=== PATIENT | female | born 1955 | race Caucasian/White ===

== ENCOUNTER → 2021-07-19 10:41 | Outpatient (CLI) | payer OTHER, MEDICARE, SELFPAY ==
--- NOTE | ~2021-07-19 | XR_ITS ---
[id number] 07/19/2021 11:12 Indication: Neck pain Procedure: 4 views cervical spine Comparison: No prior studies for comparison. Findings: Lung apices are normal. There is degenerative disc disease at multiple levels including C3- 4 through C6-7. There is degenerative anterolisthesis at C3-4 and retrolisthesis at C5-6. There is mo derate multilevel uncinate and facet hypertrophy. No acute fractures identified. No prevertebral soft tissue swelling. Odontoid process within normal limits. Lung apices are normal. Impression: 1: Severe cervical spondylosis. Reviewed, dictated and finalized at location A. [facility] Impression: 1: Severe cervical spondylosis.
== END ==
PROVIDERS: Visit Provider Chiropractor
DX: M47.812 Spondylosis without myelopathy or radiculopathy, cervical region (principal)
CPT/HCPCS: 72040